=== PATIENT | male | born 1935 | race Caucasian/White ===

== ENCOUNTER 2016-11-13 11:29 | Observation (INO) | payer MEDICARE ==
[2016-11-13] MEDS ORDERED: Sodium Chloride 0.9% 500 ML IV ONE (11:50)
[2016-11-13] MEDS: Sodium Chloride 0.9% 10 ML Syringe FLUSH PRN (12:13)
--- NOTE | 2016-11-13 12:15 | EDM.PDOC ---
ED HPI DIABETIC EMERGENCY - General Chief Complaint: Diabetic Complaint Stated Complaint: LOW BLOOD SUGAR Time Seen by Provider: 11/13/16 11:40 Source: Reports: Patient History Limitations: Reports: No limitations - History of Present Illness INITIAL COMMENTS - FREE TEXT/NARRATIVE: c/o diaphroesis lives alone, ate muffin and banana for bfast, took AM insulin but does not know how much, felt fine, went to dentist, in dental chair to get a filling, became diaphoretic, no CP, no lightheaded, no sob, no n/v, thought his BS was low, EMS called BS 85 at dental office, BS 55 here, feels fine here in ED, no c/o no fever or chills, no pain had NC and CABG x 3 at [place] 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, Dr Rubio is PCP last labs here in EHR 06-14-14 with CBC wnl, CMP neg except na 128, glu 294 and ALT 37 - Related Data Allergies/ADRs: Allergies Allergy/AdvReac Type Severity Reaction Status Date / Time No Known Allergies Allergy Verified 06/19/14 16:09 Home Meds: Home Meds Cholecalciferol (Vitamin D3) [Vitamin D3] 2,000 units PO DAILY 03/21/14 [History ] Metoprolol Tartrate [Lopressor] 12.5 mg PO BID 03/21/14 [History] Ranitidine HCl [Ranitidine] 150 mg PO BID 03/21/14 [History] Simvastatin 10 mg PO BEDTIME 03/21/14 [History] Calcium Citrate/Vitamin D3 [Citracal-Vit D 200 mg-250 Tab] 2 tab PO BID [History] Cyanocobalamin (Vitamin B-12) [Vitamin B-12] 2,000 mcg PO DAILY 06/19/14 [ History] Docusate Sodium/Sennosides [Senna Plus] 1 tab PO BID PRN 06/19/14 [History] Acetaminophen/HYDROcodone [[place] 325-5 MG] 1 tab PO Q4H PRN #40 tablet 06/27/14 [Rx] Clopidogrel Bisulfate [Clopidogrel] 75 mg PO DAILY 11/13/16 [History] Insulin Aspart [NovoLOG] 8 units SUBCUT TIDM 11/13/16 [History] Insulin Glarg,Human.Rec.Analog [Lantus] 16 units SUBCUT BEDTIME 11/13/16 [ History] Social & Family History - Tobacco Use Smoking Status *Q: Never Smoker Second Hand Smoke Exposure: No - Alcohol Use Days Per Week of Alcohol Use: 7 Number of Drinks Per Day: 1 Total Drinks Per Week: 7 - Recreational Drug Use Recreational Drug Use: No ED ROS GENERAL - Review of Systems Review Of Systems: See Below Constitutional: Reports: diaphoresis HEENT: Reports: No symptoms Respiratory: Reports: No Symptoms Cardiovascular: Reports: No symptoms Endocrine: Reports: no symptoms GI/Abdominal: Reports: No symptoms : Reports: no symptoms Musculoskeletal: Reports: no symptoms Skin: Reports: no symptoms Neurological: Reports: No Symptoms Psychiatric: Reports: No symptoms Hematologic/Lymphatic: Reports: no symptoms Immunologic: Reports: no symptoms ED EXAM GENERAL NO PERIP PULSE - Physical Exam Exam: See Below Exam Limited By: Other (alert, pleasant, eating crackers and drinking OJ, NAD, talkative, cooperative) General Appearance: alert, WD/WN, no apparent distress Eye Exam: bilateral eye: normal inspection, PERRL Ears: normal external exam, hearing grossly normal Nose: normal inspection, normal mucosa, no blood Throat/Mouth: Normal inspection, Normal lips, Normal gums, Normal oropharynx, Normal voice, No airway compromise Head: atraumatic, normocephalic Neck: normal inspection, supple, non-tender, full range of motion Respiratory/Chest: no respiratory distress, lungs clear, normal breath sounds, no accessory muscle use, chest non-tender Cardiovascular: regular rate, rhythm, no edema, no gallop, no rub, other (2/6 LA at LSB) GI/Abdominal: soft, non tender, no organomegaly, no distention, no mass Back Exam: normal inspection Extremities: normal inspection, normal range of motion, non-tender, normal capillary refill, other (venous stasis pigment changes b/l) Neurological: alert, oriented, CN II-XII intact, normal cognition, no motor/ sensory deficits Psychiatric: normal affect, normal mood Skin Exam: Warm, Dry, Intact, Normal color, No rash Lymphatic: no adenopathy Course - Vital Signs Last Recorded V/S: Last Vital Signs Temp 34.0 C L 11/13/16 15:19 Pulse 50 L 11/13/16 12:14 Resp 20 11/13/16 12:14 BP 161/69 H 11/13/16 12:14 Pulse Ox 98 11/13/16 12:14 Orthostatic Blood Pressure [ 158/66 Standing] Orthostatic Blood Pressure [ 159/76 Sitting] Orthostatic Blood Pressure [ 155/63 Supine] - Orders/Labs/Meds Orders: Active Orders 24 hr Category Date Time Status Orthostatic Vital Signs [RC] ASDIRECTED Care 11/13/16 14:10 Active Sodium Chloride 0.9% [Saline Flush] Med 11/13/16 11:59 Active 10 ml FLUSH ASDIRECTED PRN Saline Lock Insert [OM.PC] Routine Oth 11/13/16 11:59 Ordered EKG 12 Lead [EK] Routine Ther 11/13/16 11:48 Ordered Medication Orders Sodium Chloride (Saline Flush) 10 ml FLUSH ASDIRECTED PRN PRN Reason: Keep Vein Open Last Admin: 11/13/16 12:13 Dose: 10 ml Labs: Laboratory Tests 11/13/16 11/13/16 11/13/16 Range/Units 11:35 11:35 11:35 WBC 3.3 L (4.5-12.0) X10-3/uL RBC 3.75 L (4.30-5.75) x10(6)uL Hgb 11.9 (11.5-15.5) g/dL Hct 36.3 (30.0-51.3) % MCV 96.8 H (80-96) fL MCH 31.7 (27.7-33.6) pg MCHC 32.8 (32.2-35.4) g/dL RDW 16.0 H (11.5-15.5) % Plt Count 89 L (125-369) X10(3)uL MPV 8.5 (7.4-10.4) fL Neut % (Auto) 44.6 L (46-82) % Lymph % (Auto) 47.4 H (13-37) % Bowie % (Auto) 5.8 (4-12) % Eos % (Auto) 2 (1.0-5.0) % Baso % (Auto) 0 (0-2) % Neut # (Auto) 1.4 L (1.6-8.3) # Lymph # (Auto) 1.5 (0.6-5.0) # Bowie # (Auto) 0.2 (0.0-1.3) # Eos # (Auto) 0.1 (0.0-0.8) # Baso # (Auto) 0.0 (0.0-0.2) # Sodium 137 (135-145) mmol/L Potassium 3.3 L (3.5-5.3) mmol/L Chloride 103 D (100-110) mmol/L Carbon Dioxide 22 L (23-29) mmol/L BUN 28 H D (8-23) mg/dL Creatinine 1.4 H (0.6-1.3) mg/dL Est Cr Clr Drug Dosing 45.90 mL/min Estimated GFR (MDRD) 49 L (>60) BUN/Creatinine Ratio 20.0 (9-20) Glucose 65 L D (80-116) mg/dL POC Glucose (80-116) mg/dL Calcium 9.3 (8.6-10.2) mg/dL Total Bilirubin 0.8 (0.1-1.3) mg/dL AST 19 D (5-27) IU/L ALT 13 L D (14-26) IU/L Alkaline Phosphatase 67 (56-112) IU/L Troponin I < 0.01 L (0.02-0.06) NG/ML C-Reactive Protein 0.6 (0.0-1.0) mg/dL Total Protein 7.4 (6.0-8.0) g/dL Albumin 4.0 (3.2-4.6) g/dL Globulin 3.4 g/dL Albumin/Globulin Ratio 1.2 TSH, Ultra Sensitive (0.4-5.5) nlU/mL Urine Color (YELLOW) Urine Appearance (CLEAR) Urine pH (5.0-6.5) Ur Specific Stem (1.010-1.025) Urine Protein (NEGATIVE) mg/dL Urine Glucose (UA) (NEGATIVE) mg/dL Urine Ketones (NEGATIVE) mg/dL Urine Occult Blood (NEGATIVE) Urine Nitrite (NEGATIVE) Urine Bilirubin (NEGATIVE) Urine Urobilinogen (NEGATIVE) mg/dL Ur Leukocyte Esterase (NEGATIVE) Urine RBC (0) Urine WBC (0) Ur Squamous Epith Cells (NS,R,O) Urine Bacteria (NS) 11/13/16 11/13/16 11/13/16 Range/Units 11:35 11:39 12:46 WBC (4.5-12.0) X10-3/uL RBC (4.30-5.75) x10(6)uL Hgb (11.5-15.5) g/dL Hct (30.0-51.3) % MCV (80-96) fL MCH (27.7-33.6) pg MCHC (32.2-35.4) g/dL RDW (11.5-15.5) % Plt Count (125-369) X10(3)uL MPV (7.4-10.4) fL Neut % (Auto) (46-82) % Lymph % (Auto) (13-37) % Bowie % (Auto) (4-12) % Eos % (Auto) (1.0-5.0) % Baso % (Auto) (0-2) % Neut # (Auto) (1.6-8.3) # Lymph # (Auto) (0.6-5.0) # Bowie # (Auto) (0.0-1.3) # Eos # (Auto) (0.0-0.8) # Baso # (Auto) (0.0-0.2) # Sodium (135-145) mmol/L Potassium (3.5-5.3) mmol/L Chloride (100-110) mmol/L Carbon Dioxide (23-29) mmol/L BUN (8-23) mg/dL Creatinine (0.6-1.3) mg/dL Est Cr Clr Drug Dosing mL/min Estimated GFR (MDRD) (>60) BUN/Creatinine Ratio (9-20) Glucose (80-116) mg/dL POC Glucose 55 L 43 L (80-116) mg/dL Calcium (8.6-10.2) mg/dL Total Bilirubin (0.1-1.3) mg/dL AST (5-27) IU/L ALT (14-26) IU/L Alkaline Phosphatase (56-112) IU/L Troponin I (0.02-0.06) NG/ML C-Reactive Protein (0.0-1.0) mg/dL Total Protein (6.0-8.0) g/dL Albumin (3.2-4.6) g/dL Globulin g/dL Albumin/Globulin Ratio TSH, Ultra Sensitive 3.90 (0.4-5.5) nlU/mL Urine Color (YELLOW) Urine Appearance (CLEAR) Urine pH (5.0-6.5) Ur Specific Stem (1.010-1.025) Urine Protein (NEGATIVE) mg/dL Urine Glucose (UA) (NEGATIVE) mg/dL Urine Ketones (NEGATIVE) mg/dL Urine Occult Blood (NEGATIVE) Urine Nitrite (NEGATIVE) Urine Bilirubin (NEGATIVE) Urine Urobilinogen (NEGATIVE) mg/dL Ur Leukocyte Esterase (NEGATIVE) Urine RBC (0) Urine WBC (0) Ur Squamous Epith Cells (NS,R,O) Urine Bacteria (NS) 11/13/16 11/13/16 Range/Units 13:42 14:46 WBC (4.5-12.0) X10-3/uL RBC (4.30-5.75) x10(6)uL Hgb (11.5-15.5) g/dL Hct (30.0-51.3) % MCV (80-96) fL MCH (27.7-33.6) pg MCHC (32.2-35.4) g/dL RDW (11.5-15.5) % Plt Count (125-369) X10(3)uL MPV (7.4-10.4) fL Neut % (Auto) (46-82) % Lymph % (Auto) (13-37) % Bowie % (Auto) (4-12) % Eos % (Auto) (1.0-5.0) % Baso % (Auto) (0-2) % Neut # (Auto) (1.6-8.3) # Lymph # (Auto) (0.6-5.0) # Bowie # (Auto) (0.0-1.3) # Eos # (Auto) (0.0-0.8) # Baso # (Auto) (0.0-0.2) # Sodium (135-145) mmol/L Potassium (3.5-5.3) mmol/L Chloride (100-110) mmol/L Carbon Dioxide (23-29) mmol/L BUN (8-23) mg/dL Creatinine (0.6-1.3) mg/dL Est Cr Clr Drug Dosing mL/min Estimated GFR (MDRD) (>60) BUN/Creatinine Ratio (9-20) Glucose (80-116) mg/dL POC Glucose 160 H D (80-116) mg/dL Calcium (8.6-10.2) mg/dL Total Bilirubin (0.1-1.3) mg/dL AST (5-27) IU/L ALT (14-26) IU/L Alkaline Phosphatase (56-112) IU/L Troponin I (0.02-0.06) NG/ML C-Reactive Protein (0.0-1.0) mg/dL Total Protein (6.0-8.0) g/dL Albumin (3.2-4.6) g/dL Globulin g/dL Albumin/Globulin Ratio TSH, Ultra Sensitive (0.4-5.5) nlU/mL Urine Color Yellow (YELLOW) Urine Appearance Clear (CLEAR) Urine pH 5.0 (5.0-6.5) Ur Specific Stem 1.010 (1.010-1.025) Urine Protein Negative (NEGATIVE) mg/dL Urine Glucose (UA) 250 H (NEGATIVE) mg/dL Urine Ketones Negative (NEGATIVE) mg/dL Urine Occult Blood Negative (NEGATIVE) Urine Nitrite Negative (NEGATIVE) Urine Bilirubin Negative (NEGATIVE) Urine Urobilinogen Normal (NEGATIVE) mg/dL Ur Leukocyte Esterase Negative (NEGATIVE) Urine RBC 0-5 (0) Urine WBC 0-5 (0) Ur Squamous Epith Cells Occasional (NS,R,O) Urine Bacteria Rare H (NS) Meds: Medications Generic Name Dose Route Start Last Admin Trade Name Freq PRN Reason Stop Dose Admin Sodium Chloride 10 ml 11/13/16 11:59 11/13/16 12:13 Saline Flush FLUSH 10 ml ASDIRECTED PRN Administration Keep Vein Open Discontinued Medications Generic Name Dose Route Start Last Admin Trade Name Freq PRN Reason Stop Dose Admin Dextrose/Water 50 ml 11/13/16 12:48 11/13/16 12:53 Dextrose 50% In Water IVPUSH 11/13/16 12:49 50 ml ONETIME ONE Administration Sodium Chloride 500 mls @ 999 mls/hr 11/13/16 11:50 11/13/16 12:13 Normal Saline IV 11/13/16 12:20 999 mls/hr .BOLUS ONE Administration Sodium Chloride 1,000 mls @ 500 mls/hr 11/13/16 13:27 11/13/16 13:39 Normal Saline IV 11/13/16 15:26 500 mls/hr ONETIME ONE Administration Potassium Chloride 40 meq 11/13/16 14:03 11/13/16 14:32 Klor-Con M20 PO 11/13/16 14:04 40 meq ONETIME ONE Administration - Re-Assessments/Exams Free Text/Narrative Re-Assessment/Exam: 11/13/16 16:10 labs reviewed with pt. CRP, TSH, troponin, orthostatics all wnl. WBC 3.3 (had been 7.0 2.5y ago), plts 89 (had been 208 2.5y ago). CMP with K 3.3, BUN/creat 28/1.4 (c/w 16/0.9 2.5y ago). 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 Found with w/u for syncope which has not reoccurred. Did not need RT. Clinic records indicate dx of "adrenal insufficiency d/t corticosteroid withdrawal," which may have been d/t withdrawal from [place]. Pt curiously has been hypothermic here with temps of 91, 92 and now 93 oral. He is not toxic or septic. Explanation for hypothermia not clear. Hospital pharmacist called and will obtain ACTH for an ACTH stimulation test in AM to verify that he is not hypoadrenal as the cause of his hypothermia. Pt states he does feel cool at times altho not daily. Reason for inc'd BUN/creat not clear, may be related to either his CABG or brain surgery, both of which he had in the past 3y. He did have trouble voiding here until he had been given a 500 cc NS bolus and he had dec'd skin turgor c/w dehydration. Pt agrees to observation admission to r/o NC and evaluate him further for hypothermia and hypoglycemia. Dr Rubio was not in office, so I could not speak with him. Dr Brooke is admitting physician and did accept pt in admission. 11/13/16 16:11 Departure - Departure Time of Disposition: 16:19 Disposition: Refer to Observation Condition: good Clinical Impression: Hypoglycemia due to insulin, Diaphoresis, Hypothermia, Hypokalemia, Acute renal insufficiency, Leukopenia, Thrombocytopenia, Dehydration Forms: ED Department Discharge Additional Instructions: admit to obs bed to Dr Brooke - My Orders Last 24 Hours: My Active Orders 11/13/16 11:48 EKG 12 Lead [EK] Routine 11/13/16 11:59 Sodium Chloride 0.9% [Saline Flush] 10 ml FLUSH ASDIRECTED PRN Saline Lock Insert [OM.PC] Routine 11/13/16 14:10 Orthostatic Vital Signs [RC] ASDIRECTED - Assessment/Plan Last 24 Hours: My Active Orders 11/13/16 11:48 EKG 12 Lead [EK] Routine 11/13/16 11:59 Sodium Chloride 0.9% [Saline Flush] 10 ml FLUSH ASDIRECTED PRN Saline Lock Insert [OM.PC] Routine 11/13/16 14:10 Orthostatic Vital Signs [RC] ASDIRECTED
[2016-11-13] MEDS ORDERED: 50% Dextrose in Water 50 ML Syringe IVPUSH ONE (12:48)
[2016-11-13] MEDS ORDERED: Sodium Chloride 0.9% 1,000 ML IV ONE (13:27)
[2016-11-13] MEDS ORDERED: Potassium Chloride 20 MEQ Tab.ER PO ONE (14:03)
[2016-11-13] MEDS ORDERED: Zolpidem 5 MG Tab PO PRN (16:21)
[2016-11-13] MEDS ORDERED: Acetaminophen 325 MG Tab PO PRN (16:21)
[2016-11-13] MEDS ORDERED: Enoxaparin 30 MG/0.3 ML Syringe SUBCUT SCH ×2 (16:30→17:00)
[2016-11-13] MEDS ORDERED: Acetaminophen/HYDROcodone 325-5 MG Tab PO PRN (16:32)
[2016-11-13] MEDS ORDERED: NS + KCl 20mEq/L 1,000 ML IV SCH ×2 (16:45→17:00)
--- NOTE | 2016-11-13 17:46 | PCM.HP ---
H&P History of Present Illness - General Date of Service: 11/13/16 Admit Problem/Dx: Admission Diagnosis/Problem Admission Diagnosis/Problem Hypoglycemia Source of Information: Patient, Old records History Limitations: Reports: No limitations - History of Present Illness Initial Comments - Free Text/Narative: 81-year-old male previously well, this morning he went to the dentist and while in the dental chair and developed hypoglycemic symptoms. He to reported weakness,and was diaphoretic,weak and tremulous. In the ER his blood sugar was 40,and after replacement it was 50. Further, he was found to be diaphoretic and hypothermic. he is being admitted for fluid replacement, temperature control and possible adrenal insufficiency. His other previous history of adrenal insufficiency he was has a history of type 2 diabetes that is currently stable and his of coronary disease but inactive. - Related Data Allergies/Adverse Reactions: Allergies Allergy/AdvReac Type Severity Reaction Status Date / Time No Known Allergies Allergy Verified 06/19/14 16:09 Home Medications: Home Meds Cholecalciferol (Vitamin D3) [Vitamin D3] 2,000 units PO DAILY 03/21/14 [History ] Metoprolol Tartrate [Lopressor] 12.5 mg PO BID 03/21/14 [History] Ranitidine HCl [Ranitidine] 150 mg PO BID 03/21/14 [History] Simvastatin 10 mg PO BEDTIME 03/21/14 [History] Calcium Citrate/Vitamin D3 [Citracal-Vit D 200 mg-250 Tab] 2 tab PO BID [History] Cyanocobalamin (Vitamin B-12) [Vitamin B-12] 2,000 mcg PO DAILY 06/19/14 [ History] Docusate Sodium/Sennosides [Senna Plus] 1 tab PO BID PRN 06/19/14 [History] Acetaminophen/HYDROcodone [Welch 325-5 MG] 1 tab PO Q4H PRN #40 tablet 06/27/14 [Rx] Clopidogrel Bisulfate [Clopidogrel] 75 mg PO DAILY 11/13/16 [History] Insulin Aspart [NovoLOG] 8 units SUBCUT TIDM 11/13/16 [History] Insulin Glarg,Human.Rec.Analog [Lantus] 16 units SUBCUT BEDTIME 11/13/16 [ History] Past Medical History Cardiovascular History: Reports: Bypass, High cholesterol, Hypertension Endocrine/Metabolic History: Reports: Diabetes, type II - Past Surgical History Cardiovascular Surgical History: Reports: Coronary artery bypass GI Surgical History: Reports: Appendectomy, Cholecystectomy, Colonoscopy, EGD Social & Family History - Tobacco Use Smoking Status *Q: Never Smoker Second Hand Smoke Exposure: No - Caffeine Use Caffeine Use: Reports: Coffee - Alcohol Use Days Per Week of Alcohol Use: 7 Number of Drinks Per Day: 1 Total Drinks Per Week: 7 - Recreational Drug Use Recreational Drug Use: No H&P Review of Systems - Review of Systems: Review Of Systems: ROS reveals no pertinent complaints other than HPI. Exam - Exam Exam: See Below - Vital Signs Vital Signs: Last Vital Signs Temp 93.2 F L 11/13/16 15:19 Pulse 50 L 11/13/16 12:14 Resp 20 11/13/16 12:14 BP 161/69 H 11/13/16 12:14 Pulse Ox 98 11/13/16 12:14 Weight: 77.111 kg - Exam General: alert, oriented, 4 HEENT: PERRLA, Hearing intact, Mucosa moist & pink, Nares patent, Normal nasal septum, Posterior pharynx clear, Conjunctiva clear, EOMI, EACs clear, TMs clear Neck: supple, trachea midline, 2 Lungs: Clear to auscultation, Normal respiratory effort Cardiovascular: regular rate, regular rhythm Abdomen: normal bowel sounds, soft (Male) Exam: Deferred Rectal (Males) Exam: Deferred Back Exam: normal inspection, full range of motion, NT Extremities: 3, normal inspection, 10 Skin: warm, dry, intact Neurological: cranial nerves intact, reflexes equal bilateral Neuro Extensive - Mental Status: alert, oriented x3, normal mood/affect, normal cognition Neuro Extensive - Motor, Sensory, Reflexes: CN II-XII intact, normal gait, normal reflexes Psychiatric: alert, normal affect, normal mood - Patient Data Result Diagrams: 11/13/16 11:35 11/13/16 11:35 EKG INTERPRETATION Rhythm: NSR *Q Meaningful Use (ADM) - VTE *Q VTE Criteria *Q: - Stroke *Q Stroke Criteria *Q: - AMI *Q AMI Criteria *Q: - Problem List (1) Adrenal insufficiency SNOMED Code(s): 151731743 ICD Code: E27.40 - UNSPECIFIED ADRENOCORTICAL INSUFFICIENCY Status: Chronic Current Visit: Yes (2) Hypothermia SNOMED Code(s): 385717666 ICD Code: T68.XXXA - HYPOTHERMIA, INITIAL ENCOUNTER Status: Acute Current Visit: Yes Qualifiers: Encounter type: initial encounter Qualified Code(s): T68.XXXA - Hypothermia , initial encounter (3) Hypoglycemia due to insulin SNOMED Code(s): 261810202 ICD Code: E16.0 - DRUG-INDUCED HYPOGLYCEMIA WITHOUT COMA; T38.3X5A - ADVERSE EFFECT OF INSULIN AND ORAL HYPOGLYCEMIC DRUGS, INIT Status: Acute Current Visit: Yes (4) Diabetes mellitus type 2 SNOMED Code(s): 38261101 ICD Code: E11.9 - TYPE 2 DIABETES MELLITUS WITHOUT COMPLICATIONS Status: Acute Current Visit: No Problem Details: Accuchecks and SSI QID (5) HTN, Benign hypertension SNOMED Code(s): 23951537 ICD Code: I10 - ESSENTIAL (PRIMARY) HYPERTENSION Status: Acute Current Visit: No Problem Details: stable,continue meds Problem List Initiated/Reviewed/Updated: Yes Orders Last 24hrs: Active Orders 24 hr Category Date Time Status Communication Order [RC] Click to Edit Care 11/13/16 16:27 Active CORTISOL [REF] Timed Lab 11/14/16 09:00 Ordered CORTISOL [REF] Timed Lab 11/14/16 09:30 Ordered CORTISOL [REF] Timed Lab 11/14/16 10:00 Ordered Acetaminophen/HYDROcodone [Welch 325-5 MG] Med 11/13/16 16:32 Active 1 tab PO Q4H PRN Calcium Citrate/Vitamin D3 [Citracal-Vit D 200 mg-250 Med 11/13/16 21:00 Active Tab] 2 tab PO BID Cholecalciferol (Vitamin D3) [Vitamin D3] Med 11/14/16 09:00 Active 2,000 units PO DAILY Clopidogrel [Plavix] Med 11/14/16 09:00 Active 75 mg PO DAILY Cyanocobalamin (Vitamin B12) [Vitamin B12] Med 11/14/16 09:00 Active 2,000 mcg PO DAILY Docusate Sodium/Sennosides [Senna Plus] Med 11/13/16 16:32 Active 1 tab PO BID PRN Enoxaparin [Lovenox] Med 11/13/16 17:00 Active 30 mg SUBCUT DAILY@1700 Insulin Aspart [NovoLOG] Med 11/13/16 16:45 Active 8 unit SUBCUT TIDM Insulin Glarg,Human.Rec.Analog [Lantus] Med 11/13/16 21:00 Active 16 units SUBCUT BEDTIME Metoprolol Tartrate [Lopressor] Med 11/13/16 21:00 Active 12.5 mg PO BID NS + KCl 20mEq/L [Normal Saline with 20 mEq KCl] 1,000 Med 11/13/16 17:00 Active ml IV Q20H Ranitidine HCl [Ranitidine] Med 11/13/16 21:00 Active 150 mg PO BID Simvastatin [Zocor] Med 11/13/16 21:00 Active 10 mg PO BEDTIME Medication Orders Acetaminophen (Tylenol) 650 mg PO Q4H PRN PRN Reason: Pain (Mild 1-3)/fever Hydrocodone Bitart/Acetaminophen (Welch 325-5 Mg) 1 tab PO Q4H PRN PRN Reason: MODERATE PAIN Clopidogrel Bisulfate (Plavix) 75 mg PO DAILY [facility] Cyanocobalamin (Vitamin B12) 2,000 mcg PO DAILY KATIE Enoxaparin Sodium (Lovenox) 30 mg SUBCUT DAILY@1700 KATIE Potassium Chloride/Sodium Chloride (Normal Saline With 20 Meq Kcl) 1,000 mls @ 50 mls/hr IV Q20H [facility] Insulin Aspart (Novolog) 8 unit SUBCUT TIDM KATIE Metoprolol Tartrate (Lopressor) 12.5 mg PO BID KATIE Non-Formulary Medication (Calcium Citrate/Vitamin D3 [Citracal-Vit D 200 Mg-250 Tab]) 2 tab PO BID KATIE Non-Formulary Medication (Cholecalciferol (Vitamin D3) [Vitamin D3]) 2,000 units PO DAILY KATIE Non-Formulary Medication (Insulin Glarg,Human.Rec.Analog [Lantus]) 16 units SUBCUT BEDTIME KATIE Non-Formulary Medication (Ranitidine Hcl [Ranitidine]) 150 mg PO BID KATIE Senna/Docusate Sodium (Senna Plus) 1 tab PO BID PRN PRN Reason: Constipation Simvastatin (Zocor) 10 mg PO BEDTIME KATIE Sodium Chloride (Saline Flush) 10 ml FLUSH ASDIRECTED PRN PRN Reason: Keep Vein Open Last Admin: 11/13/16 12:13 Dose: 10 ml Zolpidem Tartrate (Ambien) 5 mg PO BEDTIME PRN PRN Reason: Sleep Assessment/Plan Comment:: We will replace his fluids with normal saline, control his sugar. And check his blood pressure.His temperature's up a time am seeing him now but if symptoms recur I suggest hydrocortisone 100 mg IV every 4 hours until tomorrow morning. We'll repeat some labs including a CBC CMP in the morning. We anticipate a short stay, possibly discharge him
[2016-11-13] MEDS: Insulin Aspart 100 Units/ML 3 ML Pen SUBCUT SCH ×2 (18:21→19:41)
[2016-11-13] MEDS: RANITIDINE 150 MG PO SCH (20:59)
[2016-11-13] MEDS: Metoprolol Tartrate 25 MG Tab **OWN MED PO SCH (20:59)
[2016-11-13] MEDS ORDERED: CALCIUM CITRATE PO SCH (21:00)
[2016-11-13] MEDS ORDERED: Simvastatin 10 MG Tab PO SCH (21:00)
[2016-11-13] MEDS ORDERED: Simvastatin 10 MG Tab **OWN MED PO SCH (21:00)
[2016-11-13] MEDS ORDERED: Insulin Detemir 100 Units/ML 3 ML Pen SUBCUT SCH (21:00)
[2016-11-13] MEDS ORDERED: INSULIN GLARG HUMAN REC ANALOG SUBCUT SCH (21:00)
[2016-11-13] MEDS ORDERED: Non-Formulary Medication 1 Each (Ranitidine Hcl [Ranitidine] 150 MG) PO SCH (21:00)
[2016-11-13] MEDS ORDERED: VITAMIN D3 PO SCH (21:00)
[2016-11-13] MEDS ORDERED: [UNRECOGNIZED DRUG - OTHER] PO SCH (21:00)
[2016-11-13] MEDS ORDERED: Metoprolol Tartrate 25 MG Tab PO SCH (21:00)
[2016-11-13] MEDS: Calcium Carbonate/Vitamin D3 1250 MG-200 Unit Tab PO SCH (21:01)
[2016-11-14] MEDS ORDERED: Insulin Detemir 100 Units/ML 3 ML Pen SUBCUT SCH (07:33)
[2016-11-14] MEDS: Insulin Aspart 100 Units/ML 3 ML Pen SUBCUT SCH (08:03)
[2016-11-14] MEDS: Calcium Carbonate/Vitamin D3 1250 MG-200 Unit Tab PO SCH (08:06)
[2016-11-14] MEDS: Metoprolol Tartrate 25 MG Tab **OWN MED PO SCH (08:06)
[2016-11-14] MEDS: RANITIDINE 150 MG PO SCH (08:07)
[2016-11-14 08:11] VITALS: BP 131/70
--- NOTE | 2016-11-14 08:34 | PN ---
DATE SEEN: 11/14/2016 REASON FOR VISIT: Hypoglycemia. HISTORY OF PRESENT ILLNESS: This is an 81-year-old male, admitted for low blood sugar yesterday, feels better this morning, has no complaints, has a history of type 2 diabetes, hypertension that is stable. REVIEW OF SYSTEMS: No nausea or vomiting today, denies any chills, rigors, or fever. SOCIAL: Does not smoke. Lives alone. PHYSICAL EXAMINATION: VITAL SIGNS: Blood pressure 131/70, temperature is normal, and pulse is 70 beats per minute. ENT: Negative. CHEST: Clear. CARDIOVASCULAR: Normal. RESPIRATORY: Normal. EXTREMITIES: No edema. MENTAL STATUS: Alert. NEUROLOGIC: Nonfocal. LABORATORY DATA: Normal sodium of 138, potassium is normal. Hemoglobin is 9.9 with a white cell count of 2.3. Troponin was negative. IMPRESSION: 1. Hypoglycemia, improved. 2. Type 2 diabetes. 3. Possible adrenal insufficiency. 4. Mild renal insufficiency and dehydration, improved. 5. Hypothermia, improved. 6. Stable hypertension. PLAN: The patient has ACTH stimulation test this morning, and then, he will be able to go home. He feels good. I am not going to change any medications. He will see Dr. Wilkes before the end of the week. /[id number] TOBI/ITA
[2016-11-14] MEDS ORDERED: Clopidogrel 75 MG Tab *PTOM PO SCH (09:00)
[2016-11-14] MEDS ORDERED: Cyanocobalamin (Vitamin B12) 1,000 MCG Tab *PTOM PO SCH (09:00)
[2016-11-14] MEDS ORDERED: Cosyntropin 0.25 MG Vial IV ONE (09:01)
[2016-11-14] MEDS: Sodium Chloride 0.9% 10 ML Syringe FLUSH PRN (09:06)
== END 2016-11-14 11:00 | disposition home or self-care (01) ==
LOC: FB.ED 11:29 → FB.MS 16:21
PROVIDERS: ADMIT Emergency Medicine; ATTEND Family Medicine
DX: E27.40 Unspecified adrenocortical insufficiency (principal); T68.XXXA Hypothermia, initial encounter; E16.0 Drug-induced hypoglycemia without coma; T38.3X5A Adverse effect of insulin and oral hypoglycemic [antidiabetic] drugs, initial encounter; E11.9 Type 2 diabetes mellitus without complications; I10 Essential (primary) hypertension; Z79.4 Long term (current) use of insulin; Z79.899 Other long term (current) drug therapy
CPT/HCPCS: 36415; 80048; 80053; 81001; 82533; 82962; 84443; 84484; 85025; 86140; 93005; 96361; 96372; 96374; 96375; 99285; A9270; G0378; J0834; J1650; J3480; J7040; J7050; 99217; 99220